=== PATIENT | female | born 2000 | race American Indian/Alaskan Native ===

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

== ENCOUNTER 2021-01-05 16:46 | Emergency (ER) | payer MEDICAID ==
[2021-01-05 17:41] VITALS: BP 112/63
== END 2021-01-05 23:59 | disposition left against medical advice (07) ==
LOC: ED 16:46
DX: R51.9 Headache, unspecified (principal); Z53.21 Procedure and treatment not carried out due to patient leaving prior to being seen by health care provider